=== PATIENT | female | born 1960 | race Caucasian/White ===

== ENCOUNTER → 2019-04-22 | Outpatient (CLI) | payer OTHER ==
[~2019-04-22] MED LIST: ACETAMINOPHEN 325 MG TAB ONE
[2019-04-22 10:41] LABS: INR 0.95 (0.85-1.15); PARTIAL THROMBOPLASTIN TIME 25.4 SEC (26.3-35.5)
--- NOTE | 2019-04-22 11:50 | NUR ---
U/S GUIDED RIGHT PAROTID MASS BX PROCEDURE PERFORMED BY DR. JENSEN. PUNCTURE SITE RIGHT SIDE OF NECK. PATIENT TOLERATED PROCEDURE WELL. SPECIMEN X 4 COLLECTED AND SENT TO LAB. END OF PROCEDURE AT 1200. BIOPSY NEEDLE REMOVED AN DRESSING APPLIED. NO BLEEDING NOTED. PATIENT DISCHARGE HOME AMBULATORY STABLE. PT STABLE, AAO X 3, WITH NO C/O PAIN.
== END ==
LOC: RAH 09:23
PROVIDERS: ATTEND Otolaryngology Plastic Surgery within the Head & Neck
DX: N63.0 Unspecified lump in unspecified breast (principal); Z79.01 Long term (current) use of anticoagulants
CPT/HCPCS: 36415; 42400; 76942; 85610; 85730; 88307

== ENCOUNTER → 2020-01-05 | Outpatient (CLI) | payer OTHER | END | disposition home or self-care (01) | LOC: RAH 14:21 | PROVIDERS: ATTEND Internal Medicine Cardiovascular Disease | DX: Z13.6 Encounter for screening for cardiovascular disorders (principal); Z98.82 Breast implant status | CPT/HCPCS: 75571 ==